=== PATIENT | female | born 1990 | race Caucasian/White ===

== ENCOUNTER → 2017-06-01 10:51 | Outpatient (CLI) | payer MEDICAID ==
[2017-06-01 12:19] LABS: BASOPHILS 0.1 % (0-2); EOSINOPHILS 0.6 % (0-7); HEMATOCRIT 35.3 % (36.0-48.0); HEMOGLOBIN 12.1 g/dL (12-16); IMMATURE GRANULOCYTES 1.1 % (0-5); LYMPHOCYTES 20.1 % (15-50); MCH 29.2 pg (26.0-34.0); MCHC 34.3 g/dL (31.0-37.0); MCV 85.1 fL (80.0-100.0); MEAN PLATELET VOLUME 11.4 fL (7.4-10.4); MONOCYTES 12.5 % (2-11); NEUTROPHILS 65.6 % (40-80); RBC 4.15 10x6/uL (4.00-5.40); RDW 13.8 % (11.5-14.5); WBC 8.2 10x3/uL (4.8-10.8)
[2017-06-01 12:23] LABS: ALBUMIN 2.4 g/dL (3.4-5.0); ALKALINE PHOSPHATASE 105 U/L (46-116); ALT (SGPT) 14 U/L (10-68); BILIRUBIN - DIRECT 0.06 mg/dL (0.00-0.30); BILIRUBIN - INDIRECT 0.14 mg/dL (0.00-1.00); CALC OSMOLALITY 269 mosm/kg (275-300); CALCIUM 8.9 mg/dL (8.5-10.1); CARBON DIOXIDE 18.2 mmol/L (21.0-32.0); CHLORIDE - SERUM 105 mmol/L (98-107); CREATININE - SERUM 0.6 mg/dL (0.6-1.3); GLUCOSE 93 mg/dL (74-106); POTASSIUM - SERUM 3.7 mmol/L (3.5-5.1); PROTEIN - SERUM 6.3 g/dL (6.4-8.2); SODIUM 136 mmol/L (136-145); UREA NITROGEN 7 mg/dL (7-18); URIC ACID 4.9 mg/dL (2.6-7.2); eGFR NON AFRICAN AMERICAN > 90 mL/min (90-120)
[2017-06-01 12:43] LABS: PLATELET COUNT 189 10x3/uL (130-400)
[2017-06-06 05:35] VITALS: BMI 37.5
== END | disposition home or self-care (01) ==
LOC: D.LDO 10:51
PROVIDERS: Obstetrics & Gynecology
DX: O16.3 Unspecified maternal hypertension, third trimester (principal); Z3A.38 38 weeks gestation of pregnancy

== ENCOUNTER 2017-06-06 05:12 | Inpatient (IN) | payer MEDICAID ==
[2017-06-06] VITALS (9 sets, daily range): BP systolic 114–131; BP diastolic 56–85; Ht 170.2 cm; Wt 108.4 kg
[~2017-06-06] VITALS: Ht 170.2 cm; Wt 108.4 kg
--- NOTE | ~2017-06-06 | DS ---
PATIENT:ESTRELLA FLORES :89 MEDICAL RECORD: [id number] DISCHARGE SUMMARY ADMISSION DATE: 06/06/17 DISCHARGE DATE: 06/08/17 DATE OF ADMISSION: 06/06/2017 DATE OF DISCHARGE: 06/08/2017 ADMISSION DIAGNOSES: 1. History of prior section. 2. 39 weeks' gestation. 3. GBS carrier. DISCHARGE DIAGNOSES: 1. History of prior section. 2. 39 weeks' gestation. 3. GBS carrier. 4. Mother delivered at 39 weeks. PROCEDURE: Repeat low transverse section. ATTENDING: Roman Ellison MD HISTORY OF PRESENT ILLNESS: See the H&P in the chart. SUMMARY OF HOSPITALIZATION: The patient was admitted and underwent repeat without incident. By day #2, she is tolerating regular diet and voiding without difficulty. Discharge medications will include Percocet and Motrin. The patient has been counseled in regards to contraception. The patient will use condoms for now. The patient has been given standard and postoperative precautions. Follow up in 2 weeks at the clinic. TRANSINT:[id number] Voice Confirmation ID: [id number] DOCUMENT ID: [id number] ROMAN ELLISON MD at 1727 CC: [id number] DICTATION DATE: 06/25/17 07 ELECTRIC MOTOR REBUILDER: 06/25/17 1322 DIS IN 06/08/17 [facility] [address] [place] [address]
--- NOTE | ~2017-06-06 | OP ---
PATIENT NAME: ESTRELLA FLORES MEDICAL RECORD: [id number] :89 LOCATION:[facility] D.1223 ADMISSION DATE:06/06/17 SURGEON: ALEKSANDR ELLISON MD DATE OF OPERATION: 06/06/2017 PREOPERATIVE DIAGNOSES: 1. Prior . 2. at 39 weeks. POSTOPERATIVE DIAGNOSES: 1. Prior . 2. at 39 weeks. PROCEDURE: Repeat low transverse section. SURGEON: Aleksandr Ellison MD SHORTHAND REPORTER: Kahlil. ANESTHESIOLOGIST: Chad Alfred MD. FINDINGS: Viable infant, vertex presentation, Apgars 9 and 9, weight is pending at the time of this dictation. Unremarkable uterus, tubes, and ovaries. SPECIMEN REMOVED: Placenta. SPECIMEN DISPOSITION: Discarded. ESTIMATED BLOOD LOSS: 900 cc. FLUIDS: 2 liters lactated Ringer's. URINE OUTPUT: 400 cc. COMPLICATIONS: None. DRAINS: Douglas to gravity. INDICATIONS: The patient is a 27-year-old G2, para 1 at 39 weeks with a prior . The patient is consented for repeat . Risks, benefits and limitations described. DESCRIPTION OF PROCEDURE: After informed consent was given, the patient was taken to the operating room where anesthetic was obtained and she was placed in the leftward lateral tilt and prepped and draped in the usual sterile fashion. Incision was made over the old scar, carried down to the underlying layer of the fascia, which was opened and extended laterally. The rectus bellies were in the midline and the peritoneum was entered. The peritoneal opening was extended and the DeLee all-purpose retractor inserted. Low transverse hysterotomy was performed and the was delivered onto the abdomen atraumatically with a vacuum assist. The infant was passed to the attendant after the cord was doubly clamped and cut. Cord blood sample was obtained and the placenta was delivered via Crede maneuver. Hysterotomy was closed in a running locked fashion. Bleeding was encountered at the left angle and a low O'Stitzer stitch was placed here. Another [id number] was placed in the OPERATIVE REPORT [id number] ESTRELLA FLORES midline over a large venous patch that begins to bleed. Uterus was deflected inferiorly and the cul-de-sac was irrigated and all irrigant removed. The uterus was returned to the abdomen, inspected, and found to be hemostatic. Again, the pelvis was irrigated and the irrigant removed. Water was used in the operative field was visualized for several moments with no evidence of bleeding vessels. The irrigant was removed in its entirety and the peritoneum was reapproximated with a loose stitch of chromic. The fascia was closed with a looped PDS in a running fashion. Subcutaneous tissues inspected. Bleeding vessels cauterized, and the skin was reapproximated with a Dane needle. Sponge, lap and needle count was correct times 3 at the close of the procedure. Sterile dressings applied. TRANSINT:[id number] Voice Confirmation ID: [id number] DOCUMENT ID: [id number] ALEKSANDR ELLISON MD at 1308 CC: [id number] DICTATION DATE: 06/06/17 1207 UNEMPLOYMENT INSPECTOR: 06/06/17 1226 ADM IN [facility] [address] [place] [id number]
[2017-06-06 08:25] LABS: HEMATOCRIT 34.8 % (36.0-48.0); HEMOGLOBIN 11.9 g/dL (12-16); MCH 29.2 pg (26.0-34.0); MCHC 34.2 g/dL (31.0-37.0); MCV 85.3 fL (80.0-100.0); MEAN PLATELET VOLUME 11.6 fL (7.4-10.4); RBC 4.08 10x6/uL (4.00-5.40); WBC 10.8 10x3/uL (4.8-10.8)
[2017-06-06 09:06] LABS: APPEARANCE SLT CLOUDY (CLEAR); BILIRUBIN NEGATIVE (NEGATIVE); COLOR YELLOW (YELLOW); GLUCOSE NEGATIVE (NEGATIVE); KETONE NEGATIVE (NEGATIVE); NITRITE NEGATIVE (NEGATIVE); PROTEIN NEGATIVE (NEGATIVE); SPECIFIC GRAVITY 1.015 (1.005-1.020); UROBILINOGEN NORMAL (NORMAL)
[2017-06-06 09:08] LABS: BACTERIA MODERATE /hpf (NONE SEEN); EPITHELIAL CELLS 0-5 /hpf (0-5); WHITE CELLS - URINE 0-5 /hpf (0-5)
[2017-06-06 09:09] LABS: MUCUS <1+ /lpf (NONE SEEN)
[2017-06-07 06:51] LABS: BASOPHILS 0.1 % (0-2); EOSINOPHILS 0.1 % (0-7); HEMATOCRIT 31.8 % (36.0-48.0); IMMATURE GRANULOCYTES 0.5 % (0-5); LYMPHOCYTES 11.8 % (15-50); MCH 29.5 pg (26.0-34.0); MCHC 34.6 g/dL (31.0-37.0); MCV 85.3 fL (80.0-100.0); MEAN PLATELET VOLUME 11.4 fL (7.4-10.4); MONOCYTES 7.5 % (2-11); PLATELET COUNT 160 10x3/uL (130-400); RBC 3.73 10x6/uL (4.00-5.40); RDW 14.1 % (11.5-14.5)
[2017-06-07 07:25] VITALS: BP 118/70
[2017-06-07 07:35] LABS: RAPID PLASMA REAGIN Non Reactive (Non Reactive)
[2017-06-07 20:30] VITALS: BP 125/58
[2017-06-07 23:20] VITALS: BP 133/70
[2017-06-08 04:05] VITALS: BP 120/59
[2017-06-08 07:39] VITALS: BP 135/76
== END 2017-06-08 13:37 | disposition home or self-care (01) | DRG 766 ==
LOC: D.LD 05:12 → D.WS 12:35 → D.LD 13:14 → D.WS 06-08 13:37
PROVIDERS: Obstetrics & Gynecology
PROC: 10D00Z1 Extraction of Products of Conception, Low, Open Approach (ICD-10-PCS; principal; 2017-06-06 09:30)
DX: O99.824 Streptococcus B carrier state complicating childbirth (principal); Z3A.39 39 weeks gestation of pregnancy; Z37.0 Single live birth; O34.211 Maternal care for low transverse scar from previous cesarean delivery

== ENCOUNTER 2019-05-23 02:19 | Observation (INO) | payer OTHER ==
[~2019-05-23] VITALS: Ht 170.2 cm; Wt 100.0 kg
[2019-05-23] MEDS ORDERED: LEXAPRO20 MG PO (02:30)
[2019-05-23] MEDS ORDERED: BUPROPION HCL150 M1 PO (02:30)
[2019-05-23 02:49] LABS: BASOPHILS 0.1 % (0-2); EOSINOPHILS 0.2 % (0-7); HEMATOCRIT 44.6 % (36.0-48.0); HEMOGLOBIN 15.1 g/dL (12-16); IMMATURE GRANULOCYTES 0.4 % (0-5); LYMPHOCYTES 7.7 % (15-50); MCH 28.8 pg (26.0-34.0); MCHC 33.9 g/dL (31.0-37.0); MONOCYTES 6.2 % (2-11); NEUTROPHILS 85.4 % (40-80); RBC 5.25 10x6/uL (4.00-5.40); RDW 12.6 % (11.5-14.5); WBC 17.5 10x3/uL (4.8-10.8)
[2019-05-23 02:50] LABS: PLATELET COUNT 339 10x3/uL (130-400)
[2019-05-23 02:57] LABS: CALCIUM 9.3 mg/dL (8.5-10.1); CARBON DIOXIDE 23.7 mmol/L (21.0-32.0); POTASSIUM - SERUM 3.7 mmol/L (3.5-5.1)
[2019-05-23 03:03] LABS: BILIRUBIN - TOTAL 0.49 mg/dL (0.2-1.3); PROTEIN - SERUM 7.2 g/dL (6.4-8.2)
[2019-05-23 03:07] LABS: HCG SERUM NEGATIVE (NEGATIVE)
[2019-05-23 03:08] LABS: BILIRUBIN NEGATIVE (NEGATIVE); GLUCOSE NEGATIVE (NEGATIVE); KETONE SMALL mg/dL (NEGATIVE); NITRITE NEGATIVE (NEGATIVE); UROBILINOGEN NORMAL (NORMAL)
[2019-05-23 03:09] LABS: AMORPHOUS SEDIMENT <1+ /lpf (NONE SEEN); BACTERIA MODERATE /hpf (NEGATIVE); EPITHELIAL CELLS 0-5 /hpf (0-5); RED CELLS - URINE 0-5 /hpf (0-5); WHITE CELLS - URINE 0-5 /hpf (NEGATIVE)
--- NOTE | 2019-05-23 03:20 | NUR ---
ULTRASOUND AT PT'S BEDSIDE TO DO STUDY.
--- NOTE | 2019-05-23 06:30 | NUR ---
PATIENT RECIEVED FROM ER VIA WHEELCHAIR. PATIENT AMBULATED TO BED. NO S/S OF DISTRESS. PATIENT C/O DRYNESS IN THE MOUTH, AND WAS GIVEN THE MOUTH SWABS. PATIENT HAS IV IN RIGHT AC. IV IS PATENT WITHOUT REDNESS, SWELLING, OR TENDERNESS. CALL LIGHT IN PLACE WILL CONTINUE TO MONITOR.
[2019-05-23 07:46] VITALS: BP 126/63; Ht 170.2 cm; Wt 100.0 kg
[2019-05-23 09:29] VITALS: BP 115/61
--- NOTE | 2019-05-23 10:23 | NUR ---
she has had a surgical bath, pre op meds have been given. she is having her period, has on a pad with mesh underwear. consents signed, she is ready for surgery.
--- NOTE | 2019-05-23 13:25 | HP ---
PATIENT: ESTRELLA FLORES MEDICAL RECORD: [id number] ACCOUNT: [id number] LOCATION:D.MS Gonzalez : 89 ADMISSION DATE: 05/23/19 PCP: No PCP HISTORY AND PHYSICAL EXAMINATION CHIEF COMPLAINT: Pain. HISTORY OF PRESENT ILLNESS: The patient has been having epigastric pain as well as right upper quadrant pain. I personally reviewed the CT images. I personally reviewed the CT report. It reveals a retrocecal appendix and the appendix traveled cephalad and the tip was underneath the liver and that is the reason why she has been having right upper quadrant pain. Her appendix is actually a right upper quadrant organ. The risks, possible complications and alternatives to laparoscopic appendectomy were explained to the patient. She elects to proceed. The discussion specifically included, but was not limited to, bleeding requiring emergency reoperation, infection, staple line leakage as well as an open procedure. Palpation aggravates. Nothing alleviates. When the patient arrived in the Emergency Room this morning, she had been having pain for about 18 hours. HOME MEDICATIONS: Wellbutrin as well as Lexapro. ALLERGIES: No known drug allergies. SOCIAL HISTORY: Nonsmoker. REVIEW OF SYSTEMS: Negative for CVA or seizures. Negative for diabetes or thyroid problems. Negative for renal disease or hepatitis. PHYSICAL EXAMINATION: GENERAL: The patient does not appear acutely ill. She does not appear chronically ill. The entire physical examination was performed in the presence of a female nurse. EARS: External ears appear normal. EYES: Extraocular movements are intact. NECK: Trachea is midline. CHEST: No intercostal retractions. PULMONARY: Nonlabored, no stridor. ABDOMEN: Right upper quadrant tenderness with guarding. There is peritonitis to percussion. EXTREMITIES: No peripheral cyanosis. INTEGUMENT: No rash. IMPRESSION: Acute appendicitis with localized peritonitis. PLAN: Laparoscopic appendectomy. TRANSINT:[id number] Voice Confirmation ID: [id number] DOCUMENT ID: [id number] HISTORY AND PHYSICAL [id number] ESTRELLA FLORES ROBERT MD at 1324 CC: [id number] DICTATION DATE: 05/23/19 1133 TRAILER MECHANIC: 05/23/19 1213 ADM IN [place] [id number] [place] [address]
[2019-05-23 13:30] VITALS: BP 125/71
--- NOTE | 2019-05-23 13:41 | NUR ---
back from rr via bed, sleepy. Zofran given for nausea. texting her family. vs stable. will monitor.
[2019-05-23 13:45] VITALS: BP 117/64
[2019-05-23 14:00] VITALS: BP 116/70
[2019-05-23 14:15] VITALS: BP 120/66
[2019-05-23] MEDS ORDERED: COLACE100 MG PO (16:33)
[2019-05-23] MEDS ORDERED: HYDROCODON-ACE1 EAC7 PO (16:36)
--- NOTE | 2019-05-23 18:01 | NUR ---
WENT OVER DISCHARGE INSTRUCTIONS AND EDUCATION WITH PATIENT. ANSWERED ALL QUESTIONS. REMOVED PIV. PLACED 2X2 AND BANDAID NO BLEEDING. INSTRUCTED PATIENT TO CALL WHEN HER MOTHER ARRIVES AND WE WILL WHEEL HER TO THE FRONT DOOR.
--- NOTE | 2019-05-23 18:56 | MORECARE ---
CASE MANAGEMENT DISCHARGE SUMMARY PATIENT: ESTRELLA FLORES UNIT: [id number] ADM DATE: 05/23/19 AGE: 29 : [birth year] SEX: F ROOM/BED: D.2218 AUTHOR: MELI BLAKE PHYSICIAN: REFERRING PHYSICIAN: PETERSON RAMOS MD DATE OF SERVICE: 05/23/19 Discharge Plan Patient Name: ESTRELLA FLORES [facility] [facility] 1990 Planned Disposition: Anticipated Discharge Date: Discharge Date: Expected LOS: Initial Reviewer: [email or web address] Initial Review Date: 05/23/2019 Generated: 05/23/19 7:56 pm Patient Name: ESTRELLA FLORES Page [id number] at 1856 All edits/amendments must be made on the electronic document DICTATION DATE: 05/23/191855 STONE SETTER: JUNO 05/23/191855 RPT#: [id number] DC DATE: STATUS: ADM IN [facility] [address] [place] [address] END OF REPORT
== END 2019-05-23 18:00 | disposition home or self-care (01) ==
LOC: D.ER 02:19 → D.MS 05:41 → OBSVTIME 05:41 → D.MS 07:23
PROVIDERS: Emergency Medicine; ADMIT Surgery; ATTEND Surgery
DX: K35.30 Acute appendicitis with localized peritonitis, without perforation or gangrene (principal)